=== PATIENT | female | born 1965 | race African-American/Black ===

== ENCOUNTER 2023-05-07 15:51 | Emergency (ER) | payer BC, SELFPAY ==
[2023-05-07 15:57] VITALS: BP 130/85
[2023-05-07 16:28] LABS: % Basophils 0.6 % (0-2); % Eosinophils 0.4 % (0-6); % Immature Granulocytes 0.5 % (0-0.5); % Lymphocytes 15.5 % (20.5-51.1); % Monocytes 6.5 % (1.7-9.3); % Neutrophils 76.5 % (42.2-75.2); Absolute Basophils 0.1 10^3/uL (0-0.2); Absolute Immature Granulocytes 0.1 10^3/uL (0-0.05); Absolute Lymphocytes 1.5 10^3/uL (1.2-3.4); Absolute Monocytes 0.6 10^3/uL (0.1-0.6); Absolute Neutrophils 7.5 10^3/uL (1.4-6.5); Hematocrit 33.7 % (37.0-47.0); Hemoglobin 10.8 g/dL (12.0-16.0); Mean Corpuscular Hgb 26.7 pg (27.0-31.0); Mean Corpuscular Volume 83.4 fL (81.0-99.0); Mean Platelet Volume 9.2 fL (7.4-10.4); Nucleated Red Blood Cells % 0 %; Platelet Count 512 10^3/uL (130-400); Red Blood Cell Count 4.04 10^6/uL (4.20-5.40); Red Cell Dist. Width 19.4 % (11.5-14.5); White Blood Cell Count 9.8 10^3/uL (4.8-10.8)
[2023-05-07 16:39] LABS: PT 13.4 Sec (11.4-14.6)
[2023-05-07 16:40] LABS: APTT 29.4 Sec (23.4-35.0)
[2023-05-07 16:42] LABS: ALT (SGPT) 20 U/L (0-35); AST (SGOT) 24 U/L (14-36); Albumin 3.9 g/dl (3.5-5.0); Alkaline Phosphatase 95 U/L (38-126); Blood Urea Nitrogen 25 mg/dl (7-17); Calcium 9.5 mg/dl (8.4-10.2); Carbon Dioxide 30 mmol/L (22-30); Chloride 101 mmol/L (98-107); Glucose 136 mg/dl (70-99); Potassium 4.1 mmol/L (3.5-5.1); Sodium 135 mmol/L (135-145); Total Bilirubin 0.6 mg/dl (0.2-1.3); Total Protein 9.9 g/dl (6.3-8.2); eGFR 43.88
--- NOTE | 2023-05-07 19:14 | ED.GENMED ---
History of Present Illness
General
Chief Complaint: Rectal Bleeding
Source: patient
Exam Limitations: none
Time Seen by Provider: 05/07/23 19:02
Travel History
Have you had any contact with someone who has COVID-19?: No
Do you have any symptoms of coronavirus? Fever > 100 degrees, chills, cough, shortness of breath, sore throat, loss of taste or smell, muscle aches, or headache?: No
History of Present Illness
History of Present Illness:
See MDM
Past History
Past History
ED Past Medical History: HTN and Other (IGG 4 autoimune disease)
ED Past Surgical History: Cholecystectomy
Phy Exam
Physical Exam
Physical Exam:
See MDM
Course
Orders/Labs/Results
Orders:
Orders
05/07/23 16:19
Type+Screen Urgent
Complete Blood Count/With Diff Urgent
Comprehensive Metabolic Panel Urgent
PTT Urgent
Prothrombin Time Urgent
05/07/23 19:14
CT Abd/pelvis W Iv Cont Urgent
Comment:
Reason For Exam: lower abd pain, intermittent rectal bleeding
Abnormal Lab Results
05/07/23
16:19
RBC 4.04 L 10^6/uL
(4.20-5.40)
Hgb 10.8 L g/dL
(12.0-16.0)
Hct 33.7 L %
(37.0-47.0)
MCH 26.7 L pg
(27.0-31.0)
MCHC 32.0 L g/dL
(33.0-37.0)
RDW 19.4 H %
(11.5-14.5)
Plt Count 512 H 10^3/uL
(130-400)
Abs Immat Gran (auto) 0.1 H 10^3/uL
(0-0.05)
Absolute Neuts (auto) 7.5 H 10^3/uL
(1.4-6.5)
Neutrophils % 76.5 H %
(42.2-75.2)
Lymphocytes % 15.5 L %
(20.5-51.1)
BUN 25 H mg/dl
(7-17)
Creatinine 1.4 H mg/dL
(0.6-1.0)
Glucose 136 H mg/dl
(70-99)
Total Protein 9.9 H g/dl
(6.3-8.2)
05/07/23 16:19
05/07/23 16:19
Vital Signs
Initial and Last Documented VS:
Initial Vital Signs
Temp Pulse Resp BP Pulse Ox
98.5 F 95 18 130/85 93
05/07/23 15:57 05/07/23 15:57 05/07/23 15:57 05/07/23 15:57 05/07/23 15:57
Last Documented Vital Signs
Temp Pulse Resp BP Pulse Ox
98.5 F 80 18 119/77 97
05/07/23 15:57 05/07/23 22:34 05/07/23 15:57 05/07/23 22:34 05/07/23 22:43
MDM/Problems Addressed
Differential Diagnosis Includes:
HPI and MDM Narrative:
57-year-old female presenting with 1 episode of rectal bleeding earlier today. Patient went to the bathroom and noted that there was clot on the toilet paper. When she looked in the toilet, there was blood as well. She denies prior history of
rectal bleeding. She is on prednisone currently for IgG4 autoimmune disease. She is not on blood thinners. Patient states she had a colonoscopy in 2019 and is due for 1 soon. She has a history of polyps and she believes she has a history of
diverticulosis. She denies fevers but complains of intermittent abdominal cramping
Physical exam
General: Well appearing and non-toxic
HEENT: protecting airway
Neck: appears supple
CV: No evidence of cyanosis
Resp: No accessory muscle use
Abd: Non-distended. No significant tenderness noted
Extremities: No deformities
Neuro: alert
Psych: Normal affect
Skin: Intact
Problems Addressed including Acute and Chronic Conditions affecting care:
1. Rectal bleeding
Acuity: acute
Prognosis: stable
Details: Likely in the setting of diverticulosis versus internal hemorrhoids. Will obtain CT.
Updates
I discussed hemoglobin of 10.8 and creatinine of 1.4. She is unsure of her baseline. I discussed having this reassessed by her PCP
CT shows evidence of constipation. There is diverticulosis without diverticulitis. There were incidental CT findings with patient states she is already aware of. Discussed stool softeners, MiraLAX and follow-up with PCP and GI
Differential Diagnosis (but not limited to): Diverticulosis, diverticulitis, colon cancer, internal hemorrhoid
Testing considered: Urinalysis but she is denying any complaint
Drug therapy (if applicable): OTC meds, please see d/c instruction regarding Rx drugs
Amount and/or Complexity of Data Reviewed
Clinical info obtained from: Patient
External data reviewed: N/A
Labs I independently reviewed (but not limited to): Mild anemia
Radiology: The CT scan was personally and independently reviewed. In addition, official CT report reviewed.
Pulse Ox: not hypoxic
EKG independently reviewed: N/A
Director Of Global Marketing: N/A
Critical Care: N/A
Risk of Complication:
Social Determinants of health: Good social support
Discussed with other providers: N/A
Escalation of Care includes Admit/Obs: After being observed in the Emergency Department, pt stable for discharge.
Occasional wrong word or 'sound a like' substitutions may have occurred due to the inherent limitations of voice recognition software. Read the chart carefully and recognize, using context, where substitutions have occurred.
*Critical Care Note
Total Time (30-74mins, 75-104mins- exclusive of procedures): Not Applicable
ED Attending Note
-
Portions of this chart may have been created with voice recognition software.� Occasional wrong word or��sound alike� substitutions may have occurred due to the inherent limitations of voice recognition software.
Discharge Plan
Departure
Patient Disposition: Home (Routine Discharge)
Date of Disposition: 05/07/23
Time of Disposition: 22:51
Patient with high blood pressure during this ER visit?: No
Discharge Problem:
Diverticulosis, Constipation
Instructions: Diverticulosis (DC)
Prescriptions:
No Action
metformin 500 mg Tablet
500 mg PO DAILY@0800
allopurinol 100 mg Tablet
200 mg PO DAILY
prednisone 2.5 mg Tablet
12.5 mg PO DAILY
hydrochlorothiazide 25 mg Tablet
25 mg PO DAILY
albuterol sulfate [ProAir HFA] 90 mcg/actuation Hfa Aerosol Inhaler
2 puff INHALATION R QIDPRN PRN (Reason: SOB)
escitalopram oxalate [Lexapro] 10 mg Tablet
10 mg PO DAILY
calcium carbonate-vitamin D3 [Calcium 600 + D(3)] 600 mg-10 mcg (400 unit) Tablet
1 tab PO DAILY
omeprazole 20 mg Tablet,Delayed Release (Dr/Ec)
20 mg PO DAILY
entecavir 0.5 mg Tablet
0.5 mg PO DAILY
Referrals:
Belkys Carr DO [Family Provider] -
Activity Restrictions/Additional Instructions:
Please return for any worsening symptoms.
You may return at any time if you have further concerns.
Please follow up with your doctor at the first available appointment, preferably this week. Please discussed the CT findings and your anemia and elevated kidney enzyme. This may be your baseline.
Please take MiraLAX for the next few days and start with a daily stool softener.
Please make an appointment with your jewelry coater to set up a colonoscopy.
Thank you for choosing [facility].
Interventions
Interventions:
*Risk Screen - Suicide Last Done: 05/07/23 22:36
*General Assessment Last Done: 05/07/23 15:57
*Neglect/Abuse Screening Last Done: 05/07/23 22:36
*ED COVID-19 Vaccine History Last Done: 05/07/23 15:57
[2023-05-07 22:34] VITALS: BP 119/77
[2023-05-07 22:44] VITALS: BMI 31.2
[2023-05-07 22:53] VITALS: BP 127/96
[2023-05-07 22:59] VITALS: BP 127/96
== END 2023-05-07 23:05 | disposition home or self-care (01) ==
LOC: EMR 15:51
PROVIDERS: Emergency Medicine; EMERGENCY PHYSICIAN Student in an Organized Health Care Education/Training Program; FAMILY PHYSICIAN Internal Medicine
DX: K57.90 Diverticulosis of intestine, part unspecified, without perforation or abscess without bleeding (principal); K59.00 Constipation, unspecified; D64.9 Anemia, unspecified; I10 Essential (primary) hypertension; D89.89 Other specified disorders involving the immune mechanism, not elsewhere classified; Z90.49 Acquired absence of other specified parts of digestive tract
CPT/HCPCS: 99285; 74177; 80053; 85025; 85610; 85730; 86850; 86900; 86901; Q9967

== ENCOUNTER 2025-03-01 09:54 | Emergency (ER) | payer BC, SELFPAY ==
[2025-03-01] VITALS (7 sets, daily range): BP systolic 99–120; BP diastolic 70–78; BMI 26.9
--- NOTE | 2025-03-01 11:06 | ED.GENMED ---
History of Present Illness
General
Chief Complaint: Ear Problem
Source: patient
Exam Limitations: none
Time Seen by Provider: 03/01/25 10:27
History of Present Illness
History of Present Illness:
59yoF with a history of interstitial lung disease, type 2 diabetes, and hypertension presenting for evaluation of hearing loss. Patient woke up yesterday morning and was unable to hear out of the right ear. She went to urgent care and had a normal
ear exam. Patient spoke with her fire prevention captain today who told her to the go to the ED for evaluation. Patient denies any trauma, ear pain, drainage, or history of similar issues in the past. She has been having mild headaches for the past few
days and intermittent tinnitus. She also endorses intermittent dizziness which feels like a spinning sensation. She has not had any vertiginous symptoms in the past 24 hours. Of note, patient was started on Rinvoq about 2 weeks ago.
Past History
Past History
ED Past Medical History: HTN and Other (IGG 4 autoimune disease)
ED Past Surgical History: Cholecystectomy
Phy Exam
General Physical Exam
General Presentation: well appearing and no apparent distress
General Skin: warm and dry
General Habitus: normal
General Mental: alert
ENT Exam
ENT Exam: TM's normal, normocephalic and other (R tympanic membrane and ear canal appears normal. Giles test lateralizes to the left (unaffected) ear. Bone conduction is > air conduction on right (affected) ear. )
Pulmonary Exam
Pulmonary Exam: no respiratory distress
Neurological Exam
Neurological Exam: alert, speech normal and other (Normal finger to nose and heel to dhillon bilaterally )
[place] Coma Scale
Eye Opening: Spontaneous
Verbal Response: Oriented
Motor Response: Obeys Commands
GCS Total Score: 15
Skin Exam
Skin Exam: normal color and warm/dry
Psychiatric Exam
Psychiatric Exam: normal mood/affect
Course
Orders/Labs/Results
Orders:
Orders
11/20/25 10:40
CT Head W/o Iv Contrast Urgent
Comment:
Reason For Exam: headache, R hearing loss
Vital Signs
Initial and Last Documented VS:
Initial Vital Signs
Temp Pulse Resp BP Pulse Ox
98.3 F 75 16 102/72 93
03/01/25 09:56 03/01/25 09:56 03/01/25 09:56 03/01/25 09:56 03/01/25 09:56
Last Documented Vital Signs
Temp Pulse Resp BP Pulse Ox
98.3 F 72 15 99/73 87
03/01/25 09:56 03/01/25 14:00 03/01/25 14:00 03/01/25 14:00 03/01/25 11:30
MDM/Problems Addressed
Differential Diagnosis Includes:
59yoF here with R sided hearing loss x 1 day. Also has a mild headache. Reports intermittent dizziness but none currently. VSS. R TM and ear canal appears normal on exam. VSS. Patient well appearing in no distress. Giles test lateralizes to
unaffected area and bone conduction is better than air conduction which is inconsistent. No focal neuro deficits or ataxia noted.
CT head obtained which is negative for acute findings. Discussed need for outpatient f/u with ENT and PCP. Patient in agreement with plan and she was discharged in stable condition.
*Pulse Oximetry
SaO2: 95
Oxygen Mode of Delivery: Room air
Patient hypoxic: no
*Critical Care Note
Total Time (30-74mins, 75-104mins- exclusive of procedures): Not Applicable
ED Attending Note
-
Portions of this chart may have been created with voice recognition software.� Occasional wrong word or��sound alike� substitutions may have occurred due to the inherent limitations of voice recognition software.
Discharge Plan
Departure
Patient Disposition: Home (Routine Discharge)
Date of Disposition: 03/01/25
Time of Disposition: 14:04
Patient with high blood pressure during this ER visit?: No
Discharge Problem:
Unilateral hearing loss
Instructions: Hearing loss in adults
Prescriptions:
No Action
metformin 500 mg Tablet
500 mg PO DAILY@0800
allopurinol 100 mg Tablet
200 mg PO DAILY
prednisone 2.5 mg Tablet
12.5 mg PO DAILY
hydrochlorothiazide 25 mg Tablet
25 mg PO DAILY
albuterol sulfate [ProAir HFA] 90 mcg/actuation Hfa Aerosol Inhaler
2 puff INHALATION R QIDPRN PRN (Reason: SOB)
escitalopram oxalate [Lexapro] 10 mg Tablet
10 mg PO DAILY
calcium carbonate-vitamin D3 [Calcium 600 + D(3)] 600 mg-10 mcg (400 unit) Tablet
1 tab PO DAILY
omeprazole 20 mg Tablet,Delayed Release (Dr/Ec)
20 mg PO DAILY
entecavir 0.5 mg Tablet
0.5 mg PO DAILY
Referrals:
Richard Vernon MD [Family Provider, Internal Medicine]
Philip Mcmanus MD [Active, Otology]
Joel Valentine MD [Active, ENT]
Activity Restrictions/Additional Instructions:
Please call today to schedule follow-up appointments with your family doctor and ENT.
Interventions
Interventions:
*Risk Screen - Suicide Last Done: 03/01/25 09:56
*General Assessment Last Done: 03/01/25 10:21
*Neglect/Abuse Screening Last Done: 03/01/25 09:56
*ED- Fall Risk Assessment Last Done: 03/01/25 10:21
*ED COVID-19 Vaccine History Last Done: 03/01/25 10:21
*ED Influenza Vaccine History Last Done: 03/01/25 10:21
*Nursing Disposition Last Done: 03/01/25 14:35
Discharge Date and Time
Discharge Date/Time: 03/01/25 14:50
Print Language: [id number]
== END 2025-03-01 14:50 | disposition home or self-care (01) ==
LOC: EMR 09:54
PROVIDERS: EMERGENCY PHYSICIAN Student in an Organized Health Care Education/Training Program; FAMILY PHYSICIAN Internal Medicine
DX: H91.91 Unspecified hearing loss, right ear (principal); H93.19 Tinnitus, unspecified ear; E11.9 Type 2 diabetes mellitus without complications; I10 Essential (primary) hypertension; Z90.49 Acquired absence of other specified parts of digestive tract; Z87.09 Personal history of other diseases of the respiratory system
CPT/HCPCS: 99284; 70450